=== PATIENT | male | born 1975 | race Two or more races ===

== ENCOUNTER 2022-01-18 10:09 | Outpatient (CLI) | payer OTHER | END 2022-01-18 10:26 | disposition home or self-care (01) | LOC: SONOGRAMA 10:09 | PROVIDERS: ATTEND Orthopaedic Surgery | DX: M75.121 Complete rotator cuff tear or rupture of right shoulder, not specified as traumatic (principal) ==

== ENCOUNTER → 2022-03-03 08:00 | Outpatient (CLI) | payer OTHER ==
[~2022-03-03 08:00] MED LIST: CATAFLAN PO; COZAAR25 MG PO; GABAPENTIN600 MG PO; HYDRODIURIL12.5 MG PO; SYNTHROID200 MCG PO; TRIJARDY XR 251 EACH PO; ULTRAM50 MG PO
== END | disposition home or self-care (01) ==
LOC: ADM 07:45 → LAB 08:00 → EDSTATUS 03-08 07:45 → CIR.AMB 03-08 07:45
PROVIDERS: ATTEND Orthopaedic Surgery
DX: Z03.818 Encounter for observation for suspected exposure to other biological agents ruled out (principal); E11.9 Type 2 diabetes mellitus without complications; S52.571A Other intraarticular fracture of lower end of right radius, initial encounter for closed fracture

== ENCOUNTER 2023-10-25 11:16 | Outpatient (CLI) | payer OTHER | END 2023-10-25 11:30 | disposition home or self-care (01) | LOC: SONOGRAMA 11:16 | PROVIDERS: ATTEND Orthopaedic Surgery | DX: M25.571 Pain in right ankle and joints of right foot (principal); M75.121 Complete rotator cuff tear or rupture of right shoulder, not specified as traumatic; M76.71 Peroneal tendinitis, right leg ==

== ENCOUNTER 2024-06-06 12:56 | Outpatient (CLI) | payer OTHER | END 2024-06-06 13:01 | disposition home or self-care (01) | LOC: SONOGRAMA 12:56 | PROVIDERS: ATTEND Orthopaedic Surgery | DX: M75.121 Complete rotator cuff tear or rupture of right shoulder, not specified as traumatic (principal); M75.122 Complete rotator cuff tear or rupture of left shoulder, not specified as traumatic; M75.21 Bicipital tendinitis, right shoulder; M75.22 Bicipital tendinitis, left shoulder ==

== ENCOUNTER 2025-01-14 07:30 | Outpatient (CLI) | payer OTHER ==
[2025-01-14 08:53] LABS: BASO % 0.9 % (0.1-1.2); EOS # 0.36 (0.04-0.54); EOS % 4.6 % (0.7-7.0); LYMPH # 2.41 (1.18-3.74); LYMPH % 30.5 % (19.3-53.1); MEAN PLATELET VOLUME 9.40 fl (9.4-12.4); MONO # 0.78 (0.24-0.82); MONO % 9.9 % (4.7-12.5); NEUT # 4.27 (1.56-6.13); NEUT % 53.8 % (34.0-71.1); RED CELL DISTRIBUTION WIDTH 16.4 % (11.6-14.4)
[2025-01-14 09:03] LABS: URINE APPEARANCE Clear; URINE BILIRRUBIN Negative (NEGATIVE); URINE BLOOD Negative; URINE COLOR Yellow; URINE KETONE Trace (NEGATIVE); URINE LEUKOCYTE Negative; URINE NITRATE Negative; URINE PROTEIN Negative (NEGATIVE); URINE UROBILINOGEN 0.2 E.U./dl
[2025-01-14 09:10] LABS: URINE BACTERIA 1.1 uL (0.0-1933); URINE CAST 0.00 uL (0.0-1.40); URINE EPITHELIAL CELLS 0.7 uL (0.0-38.8); URINE GLUCOSE >=1000 MG/DL (NEGATIVE); URINE RBC 0.7 uL (0.0-20.8); URINE WBC 1.6 uL (0.0-23.2)
[2025-01-14 09:15] LABS: INR 0.96
[2025-01-14 09:17] LABS: COL EPI 115 SECONDS (82-175)
[2025-01-14 10:06] LABS: ALT/SGPT 25.0 U/L (12-78); AST/SGOT 14.0 U/L (15-37); BILIRUBIN TOTAL 0.58 mg/dL (0.3-1.2); BUN CREA RATIO 31.0 (7.0-25.0); CREATININE SERUM 0.7 mg/dL (0.70-1.30); GFR 119.37; GLOBULINA 3.5 G/DL (2.4-3.5); GLUCOSE FASTING 121.0 mg/dL (65-100); OSMOLALITY SERUM 286.0 MOSM/KG (275-295)
== END 2025-01-14 13:27 | disposition home or self-care (01) ==
LOC: RAD 07:30
PROVIDERS: ATTEND Orthopaedic Surgery
DX: D64.9 Anemia, unspecified (principal); I10 Essential (primary) hypertension; E88.89 Other specified metabolic disorders; D68.8 Other specified coagulation defects; N39.0 Urinary tract infection, site not specified; E11.9 Type 2 diabetes mellitus without complications; Z76.89 Persons encountering health services in other specified circumstances; M75.121 Complete rotator cuff tear or rupture of right shoulder, not specified as traumatic

== ENCOUNTER 2025-01-29 07:20 | Day surgery (SDC) | payer OTHER ==
[~2025-01-29 07:20] MED LIST changes: +ATORVASTATIN CA10 MG PO; +FARXIGA10 MG PO; +HUMALOG100 UNIT/2; +LANTUS SOL100 UNIT/1; +METFORMIN HCL1000 M2 PO
[2025-01-29] MEDS ORDERED: CIPROFLOXACIN IN 5 % DEXTROSE 400 MG/200 ML PIGGYBAG IV ONE (07:50)
[2025-01-29] MEDS ORDERED: BUPIVACAINE HCL/MPF 0.5% 30ML VIAL ONE (10:29)
[2025-01-29] MEDS ORDERED: EPINEPHRINE HCL/PF 1 MG/ML AMPUL ONE (11:33)
[2025-01-29] MEDS ORDERED: SUGAMMADEX SODIUM 200 MG/2 ML VIAL IV ONE (13:24)
== END 2025-01-29 17:20 | disposition home or self-care (01) ==
LOC: CIR.AMB 07:20
PROVIDERS: ATTEND Orthopaedic Surgery
DX: M75.121 Complete rotator cuff tear or rupture of right shoulder, not specified as traumatic (principal); M25.811 Other specified joint disorders, right shoulder; M65.821 Other synovitis and tenosynovitis, right upper arm; M24.111 Other articular cartilage disorders, right shoulder